=== PATIENT | female | born 1960 | race Caucasian/White ===

== ENCOUNTER 2021-04-23 14:47 | Outpatient (CLI) | payer BC | END 2021-04-23 14:48 | disposition home or self-care (01) | LOC: CSHMAMMO 14:47 | PROVIDERS: ATTEND Internal Medicine Hematology & Oncology | DX: Z13.820 Encounter for screening for osteoporosis (principal); Z78.0 Asymptomatic menopausal state; C50.412 Malignant neoplasm of upper-outer quadrant of left female breast; T38.6X5A Adverse effect of antigonadotrophins, antiestrogens, antiandrogens, not elsewhere classified, initial encounter | CPT/HCPCS: 77080 ==